=== PATIENT | male | born 1985 | race Caucasian/White ===

== ENCOUNTER 2017-01-31 22:05 | Emergency (ER) | payer BC, OTHER ==
[~2017-01-31] VITALS: Ht 167.6 cm; Wt 79.9 kg
[2017-02-01 00:18] VITALS: BP 117/65
== END 2017-02-01 00:20 | disposition home or self-care (01) ==
LOC: ED 23:11
DX: G44.219 Episodic tension-type headache, not intractable (principal)
CPT/HCPCS: 70450

== ENCOUNTER 2019-07-03 17:01 | Emergency (ER) | payer OTHER ==
[~2019-07-03] VITALS: Ht 167.6 cm; Wt 81.1 kg
[2019-07-03] MEDS ORDERED: ONDANSETRON 2MG/ML, 2ML IVPush ONE (17:30)
[2019-07-03] MEDS ORDERED: SODIUM CHLORIDE 0.9% 1,000ML IVBOLUS ONE (17:30)
[2019-07-03] MEDS ORDERED: PROPOFOL 10 MG/ML, 20ML IVPush ONE (17:30)
[2019-07-03] MEDS ORDERED: PROPOFOL 10 MG/ML, 20ML ONE ×2 (17:47→18:04)
[2019-07-03] MEDS ORDERED: ONDANSETRON 2MG/ML, 2ML ONE (17:49)
--- NOTE | 2019-07-03 18:40 | NUR ---
LATE ENTRY FOR EGD PROCEDURE. DR RAMOS GAVE TOTAL OF 200MCG PROPOFOL, PT BP, SPO2, RESP, HR MAINTAINED T/O PROCEDURE. FB WAS RETRIEVED AND REMOVED BY GI MD W/O DIFFICULTY. PT TOLLERATED PROCEDURE WELL. PT AWAKE NOTED ON SEDATION FLOW SHEET AND REPORTS NO MEMORY OF PROCEDURE. TO BEDSIDE, VSS, NAD NOTED.
--- NOTE | 2019-07-03 18:45 | NUR ---
PT RTD TO BASELINE, DENIES PAIN. SBAR RPT TO KRISHNA HOFF.
[2019-07-03 19:05] VITALS: BP 124/74
== END 2019-07-03 19:06 | disposition home or self-care (01) ==
LOC: ED 18:50
DX: T18.198A Other foreign object in esophagus causing other injury, initial encounter (principal); X58.XXXA Exposure to other specified factors, initial encounter; Y93.89 Activity, other specified; Y92.89 Other specified places as the place of occurrence of the external cause; Y99.8 Other external cause status
CPT/HCPCS: 99152; 99285